=== PATIENT | female | born 2000 | race Caucasian/White ===

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

== ENCOUNTER → 2021-07-18 10:19 | Outpatient (BNVA) | payer MEDICAID, SELFPAY | PROVIDERS: PCP Family Medicine; Visit Provider Nurse Practitioner Family | DX: J02.0 Streptococcal pharyngitis (principal) | CPT/HCPCS: 87880 ==

== ENCOUNTER 2021-11-01 06:00 | Outpatient (RCR) | payer MEDICAID, SELFPAY | END 2021-11-15 23:59 | disposition home or self-care (01) | LOC: MPT 06:00 | PROVIDERS: PCP Family Medicine; Referring Provider Emergency Medicine; Visit Provider Emergency Medicine | DX: M21.372 Foot drop, left foot (principal) | CPT/HCPCS: 97161 ==

== ENCOUNTER → 2021-11-02 14:33 | Outpatient (BNVA) | payer MEDICAID, SELFPAY | PROVIDERS: Referring Provider Emergency Medicine; Visit Provider Nurse Practitioner | DX: M21.372 Foot drop, left foot (principal); R51.9 Headache, unspecified | CPT/HCPCS: 99204 ==

== ENCOUNTER → 2022-03-27 09:54 | Outpatient (BNVA) | payer MEDICAID, SELFPAY | PROVIDERS: PCP Family Medicine; Visit Provider Emergency Medicine | DX: R68.89 Other general symptoms and signs (principal); R11.0 Nausea; J98.8 Other specified respiratory disorders; B97.89 Other viral agents as the cause of diseases classified elsewhere; R11.2 Nausea with vomiting, unspecified | CPT/HCPCS: 87400; 87426 ==

== ENCOUNTER 2022-07-05 11:56 | Emergency (ER) | payer MEDICAID, SELFPAY ==
[2022-07-05 12:01] VITALS: BP 141/90; PULSE 77; RESP 16; TEMP 36.3; O2SAT 100; BMI 27.7
--- NOTE | 2022-07-05 12:08 | XR_ITS ---
WS: [id number] Left elbow, 3 views, 07/05/2022 Clinical Data: pain/injury Comparison: None. Findings: No fractures or dislocations are seen. The radial head is normal. The soft tissues are unremarkable. XR/XR elbow LT min 3V* [id number] Impression: Negative left elbow.
--- NOTE | 2022-07-05 12:09 | W.ED.UPPEXIN ---
HPI - Extremity Injury (Upper) General: Chief Complaint: Extremity Injury, Upper Stated Complaint: left arm injury Time Seen by Provider: 07/05/22 11:57 Source: patient Mode of arrival: ambulatory Limitations: no limitations History of Present Illness: Patient is a 22-year-old female presents to ED today left elbow injury. Patient states yesterday she accidentally fell directly onto the left elbow. She was seen at [facility] ED and had the elbow x-rayed and was reportedly told it might be broke but we don't know-there also may be blood in the joint but we don't know . Patient states she was placed in a sling and told to follow-up with her primary care provider. Patient states she went to work today and was told by her boss/coworker that she needs the elbow re-evaluated. complaint: injury to: left and elbow Onset (ago): day(s) Other Extremity Injury: Left: elbow Other injuries: none Place: outdoors Severity: severe Severity scale (1-10): 10 Relieving factors: immobilization Exacerbating factors: movement of extremity Context: fall and direct blow Associated symptoms: Reports no associated symptoms; Denies weakness in extremities Treatments prior to arrival: other (ED evaluation/sling) Review of Systems Musc: Reports: joint pain (L elbow) and joint swelling (L elbow) Neuro: Denies: numbness in extremities, weakness in extremities or sensory changes [facility] ED PFSH: Medical History Carpal tunnel syndrome on right Depression she was on zoloft in July [address] Lam, but she tried to overdose. She was hospitalized at the [place]-- started on Celexa, but she was not sent home on that. She moved and has not been on medication since July 2020. Headaches due to old head injury Surgical History No pertinent past surgical history Family History Mother Polycystic kidney disease Hypertension Hyperlipidemia Unknown No problems noted. Family/Other Diabetes 2 maternal aunts Other Chronic kidney disease (CKD) Denies family history of Clotting disorder Cancer Stroke Social History Smoking and tobacco status: former smoker Alcohol intake: never Adopted: No Female Reproductive History: Spontaneous abortions: No Physical Exam Const: COMMON NORMALS: no acute distress, average body habitus, no limitations, healthy appearing, alert and well nourished Extremity: COMMON NORMALS: capillary refill normal GENERAL: Yes normal exam except as noted LEFT UPPER EXTREMITY: Yes elbow joint (diffuse elbow joint swelling) Left elbow: Yes ROM (limited secondary to discomfort), Yes neurovascular exam (normal) and Yes other (pulses, cap refill, sensation normal; can wiggle all fingers) Neuro: COMMON NORMALS: moves all extremities, no focal motor deficits and no sensory deficits noted SENSORIUM/ORIENTATION: Yes alert Skin: TRAUMA: no lacerations or abrasions Course Vital Signs: Vital signs: Vital Signs Temperature 97.3 F L 07/05/22 12:01 Pulse Rate 77 07/05/22 12:01 Respiratory Rate 16 07/05/22 12:01 Blood Pressure 141/90 07/05/22 12:01 Pulse Oximetry 100 07/05/22 12:01 Oxygen Delivery Me thod 07/05/22 12:01 MDM - Extremity Injury (Upper) Medical Decision Making Based on her XRs today I suspect a radial head fracture. Records from [facility] were faxed over near the end of her visit and radiology report from their XR shows a left elbow effusion with minimal radial neck cortical angulation that may represent an acute fracture. Patient is requesting a splint instead of her sling to help with immobilization. Case management referral for orthopedics placed. Will be provided pain control. Lab Data Radiology Impressions Elbow X-Ray 07/05/22 12:08 Impression: Negative left elbow. Discharge Plan Discharge Patient Disposition: Home Clinical Impression: Occult closed fracture of left elbow Qualifiers: Encounter type: initial encounter Qualified Code(s): S42.402A - Unspecified fracture of lower end of left humerus, initial encounter for closed fracture Condition: Stable Prescriptions: New hydrocodone-acetaminophen 5-325 mg tablet 1 tab PO Q6H PRN (Reason: pain) Qty: 14 0RF No Action [id number] [Bromfed DM] 2-30-10 mg/5 mL syrup 7.5 ml PO Q6H PRN (Reason: cold symptoms) Qty: 160 0RF ondansetron 4 mg tablet,disintegrating 4 mg PO Q6H PRN (Reason: nausea and vomiting) Qty: 12 0RF Rx Instructions: 340b please Discharge Orders: Discharge ED (Routine); Ordered 07/05/22 Ordered By: Sailaja Leger Referrals: Anne Lam MD [Primary Care Provider] - Patient Instructions: Elbow Fracture (DC), Opioid Safety, Pain Management Activity Restrictions/Additional Instructions: As we discussed you need to ice and elevate the elbow. You may stay in your splint until told otherwise by orthopedics. You should hear from case management early next week to set you up with this appointment. You may use prescribed pain medications for severe pain. 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
[2022-07-05] MEDS: HYDROcodone-acetaminophen 5-325 mg Tablet 1 TAB PO (12:29)
--- NOTE | 2022-07-08 09:13 | DCPLANNER ---
Addendum entered by Bisi Caldera 07/10/22 15:30: Patient had a follow up appointment scheduled with ortho for 07.08.22 - patient did attend appointment. Original Note: engineering manager electronics had message to schedule a follow up appointment for patient with ortho. engineering manager electronics sent patients information to the front office staff at ortho. Patients information will be printed and reviewed. Clinic will call patient with appointment information.
== END 2022-07-05 13:12 | disposition home or self-care (01) ==
PROVIDERS: Emergency Provider Physician Assistant; PCP Family Medicine
DX: S42.402A Unspecified fracture of lower end of left humerus, initial encounter for closed fracture (principal); Z87.891 Personal history of nicotine dependence; W19.XXXA Unspecified fall, initial encounter
CPT/HCPCS: 73080; 99283

== ENCOUNTER → 2022-07-08 15:35 | Outpatient (BNVA) | payer MEDICAID, SELFPAY | PROVIDERS: PCP Family Medicine; Referring Provider Physician Assistant; Visit Provider Specialist | DX: S59.912A Unspecified injury of left forearm, initial encounter (principal); W17.89XA Other fall from one level to another, initial encounter | CPT/HCPCS: 73080; 73090 ==

== ENCOUNTER → 2022-08-06 14:48 | Outpatient (BNVA) | payer MEDICAID, SELFPAY | PROVIDERS: PCP Family Medicine; Visit Provider Family Medicine | DX: R73.9 Hyperglycemia, unspecified (principal); R53.83 Other fatigue; I10 Essential (primary) hypertension; Z13.1 Encounter for screening for diabetes mellitus; Z83.3 Family history of diabetes mellitus | CPT/HCPCS: 80053; 83036; 84443; 85025 ==

== ENCOUNTER → 2022-09-05 10:40 | Outpatient (BNVA) | payer MEDICAID, SELFPAY | PROVIDERS: PCP Family Medicine; Visit Provider Nurse Practitioner Family | DX: R69 Illness, unspecified (principal); J02.9 Acute pharyngitis, unspecified | CPT/HCPCS: 87071; 87880 ==

== ENCOUNTER → 2023-04-02 10:34 | Outpatient (BNVA) | payer MEDICAID, SELFPAY | PROVIDERS: PCP Family Medicine; Visit Provider Family Medicine | DX: S83.105A Unspecified dislocation of left knee, initial encounter (principal); X58.XXXA Exposure to other specified factors, initial encounter | CPT/HCPCS: 73562 ==

== ENCOUNTER → 2023-04-23 15:02 | Outpatient (BNVA) | payer MEDICAID, SELFPAY | PROVIDERS: PCP Family Medicine; Referring Provider Family Medicine; Visit Provider Nurse Practitioner | DX: S89.92XA Unspecified injury of left lower leg, initial encounter (principal); S83.015A Lateral dislocation of left patella, initial encounter; X58.XXXA Exposure to other specified factors, initial encounter | CPT/HCPCS: 73562 ==

== ENCOUNTER → 2023-05-28 15:16 | Outpatient (BNVA) | payer MEDICAID, SELFPAY | PROVIDERS: PCP Family Medicine; Visit Provider Nurse Practitioner | DX: X58.XXXA Exposure to other specified factors, initial encounter; S83.015A Lateral dislocation of left patella, initial encounter | CPT/HCPCS: 73562 ==

== ENCOUNTER 2023-07-07 06:00 | Outpatient (RCR) | payer MEDICAID, SELFPAY | END 2023-07-17 23:59 | disposition home or self-care (01) | LOC: MPT 06:00 | PROVIDERS: Visit Provider Nurse Practitioner | DX: M22.01 Recurrent dislocation of patella, right knee (principal); M22.02 Recurrent dislocation of patella, left knee; M25.561 Pain in right knee; M25.562 Pain in left knee | CPT/HCPCS: 97110; 97161 ==

== ENCOUNTER 2023-07-18 06:00 | Outpatient (RCR) | payer MEDICAID, SELFPAY | END 2023-08-17 23:59 | disposition home or self-care (01) | LOC: MPT 06:00 | PROVIDERS: Visit Provider Nurse Practitioner | DX: M23.52 Chronic instability of knee, left knee (principal) | CPT/HCPCS: 97110 ==

== ENCOUNTER 2023-09-01 06:00 | Outpatient (RCR) | payer MEDICAID, SELFPAY | END 2023-09-16 23:59 | disposition home or self-care (01) | LOC: MPT 06:00 | PROVIDERS: Visit Provider Specialist | DX: M25.562 Pain in left knee (principal); G89.29 Other chronic pain | CPT/HCPCS: 97110; 97162; 97530 ==

== ENCOUNTER 2023-09-16 15:48 | Outpatient (CLI) | payer MEDICAID, SELFPAY ==
--- NOTE | 2023-09-16 16:00 | MR_ITS ---
WS: [id number] MRI LEFT KNEE HISTORY: left knee instability COMPARISON: Radiograph 05/28/2023 Anterior cruciate ligament: Intact. Posterior cruciate ligament: Intact. Medial collateral ligament: Intact. Posterior lateral corner structures: Intact. Medial menisci: Intact. Normal signal, size and shape. Lateral meniscus: Intact. Normal signal, size and shape. Extensor mechanism: Distal quadriceps tendon and patellar tendons are intact. Fluid and soft tissue: No joint effusion. Small amount of fluid adjacent to the medial gastrocnemius tendon. There is also a lobulated cystic mass along the superior aspect of the medial femoral condyle extending over a length of 2.8 x 0.8 cm. Due to the lobular configuration this is probably a ganglio n. There is a small amount of increased T2 signal in the origin of the medial head of the gastrocnemi us suggesting a mild sprain. Osseous and articular structures: Patellofemoral compartment: Normal. Medial compartment: Normal. Lateral compartment: There is a very small, 3 mm osteochondral defect along the lateral tibial platea u towards the intercondylar notch consistent with chondromalacia. MR/MR knee LT wo con* [id number] IMPRESSION: 1. No secondary findings of patellar dislocation. 2. No meniscal tear. 3. Lobulated cystic mass adjacent to the origin medial head of the gastrocnemi us. Suspect this is probably a ganglion. Associated mild sprain involving the o rigin medial head of the gastrocnemius. 4. Very small Lara's cyst. 5. Very small osteochondral lesion involving the lateral tibial plateau toward s the intercondylar notch.
== END 2023-09-16 15:49 | disposition home or self-care (01) ==
PROVIDERS: Visit Provider Nurse Practitioner
DX: S83.015A Lateral dislocation of left patella, initial encounter (principal); M71.22 Synovial cyst of popliteal space [Baker], left knee; M93.262 Osteochondritis dissecans, left knee; X58.XXXA Exposure to other specified factors, initial encounter
CPT/HCPCS: 73721

== ENCOUNTER → 2024-12-20 14:16 | Outpatient (BNVA) | payer MEDICAID, SELFPAY | PROVIDERS: Visit Provider Nurse Practitioner | DX: N39.0 Urinary tract infection, site not specified (principal); R10.9 Unspecified abdominal pain | CPT/HCPCS: 81000; 87086 ==

== ENCOUNTER → 2024-12-30 11:04 | Outpatient (BNVA) | payer MEDICAID, SELFPAY | PROVIDERS: Visit Provider Nurse Practitioner | DX: M25.562 Pain in left knee (principal) | CPT/HCPCS: 73562 ==